=== PATIENT | male | born 1955 | race Caucasian/White ===

== ENCOUNTER → 2018-03-28 | Outpatient (CLI) | payer OTHER | END | disposition home or self-care (01) | LOC: CDC 12:20 | DX: Z01.810 Encounter for preprocedural cardiovascular examination (principal); S76.112A Strain of left quadriceps muscle, fascia and tendon, initial encounter; M25.562 Pain in left knee; R00.0 Tachycardia, unspecified | CPT/HCPCS: 93000 ==